=== PATIENT | male | born 1940 | race Caucasian/White ===

== ENCOUNTER 2018-08-03 22:05 | Emergency (ER) | payer MEDICARE, OTHER ==
--- NOTE | 2018-08-03 22:56 | EDM.PDOC ---
ED HPI GENERAL MEDICAL PROBLEM - General Chief Complaint: General Stated Complaint: OFF MEDS Time Seen by Provider: 08/03/18 22:14 Source of Information: Reports: Patient, Family (Son), RN Notes Reviewed History Limitations: Reports: No Limitations - History of Present Illness INITIAL COMMENTS - FREE TEXT/NARRATIVE: The patient states that his physician, Dr. León, from [place], moved more than a year ago, and when the patient's medications ran out, he did not follow- up with another provider. He has therefore been out of his medications for about a year. The patient has type 2 diabetes, and states that he checked his blood glucose around 2 weeks ago, finding it to be around 300, however, he says that his glucometer strips are old and, he presumes, therefore give an incorrectly high result, or so he has been told. The patient is now brought to the ED by his son who came to visit him and discovered that he has not been to the doctor for about a year. The patient's son apparently called a friend of theirs who is a batch and furnace manager, and asked if the patient should go to a walk-in clinic, the ER, or follow-up with a PCP, and the batch and furnace manager friend said that they should go to the ER. The patient states that he has not had any recent illnesses. He denies, specifically, any recent fever, chills, cough, chest pain, palpitations, dyspnea , nausea, vomiting, constipation, diarrhea, dysuria, urinary urgency, or urinary frequency. No recent rashes, recent weight gain or weight loss. - Related Data Allergies Allergy/AdvReac Type Severity Reaction Status Date / Time metformin Allergy Abdominal Verified 08/03/18 22:14 Pain Home Meds: Home Meds Aspirin [Halfprin] 81 mg PO DAILY 08/03/18 [History] Lisinopril 1 tab PO QPM #7 tablet 08/04/18 [Rx] Past Medical History Cardiovascular History: Reports: Hypertension (untreated) Genitourinary History: Reports: BPH (untreated) Musculoskeletal History: Reports: Arthritis Psychiatric History: Reports: Anxiety (untreated) Endocrine/Metabolic History: Reports: Diabetes, Type II (untreated) Oncologic (Cancer) History: Reports: Squamous Cell Carcinoma (excised) - Past Surgical History HEENT Surgical History: Reports: Cataract Surgery (bilateral) GI Surgical History: Reports: Hernia, Inguinal (right, 05/09/2012) Social & Family History - Family History Family Medical History: Noncontributory - Tobacco Use Smoking Status *Q: Never Smoker - Alcohol Use Alcohol Use History: No - Recreational Drug Use Recreational Drug Use: No - Living Situation & Occupation Living situation: Reports: , with Spouse Occupation: Retired ED ROS GENERAL - Review of Systems Review Of Systems: ROS reveals no pertinent complaints other than HPI. ED EXAM, GENERAL - Physical Exam Exam: See Below Exam Limited By: No Limitations General Appearance: Alert, WD/WN, No Apparent Distress Eye Exam: Bilateral Eye: EOMI, Normal Inspection Ears: Normal External Exam, Hearing Grossly Normal Nose: Normal Inspection Throat/Mouth: Normal Inspection, Normal Lips, Normal Voice, No Airway Compromise Head: Atraumatic, Normocephalic Neck: Normal Inspection, Full Range of Motion Respiratory/Chest: No Respiratory Distress, Lungs Clear, Normal Breath Sounds, No Accessory Muscle Use Cardiovascular: Normal Peripheral Pulses, Regular Rate, Rhythm, No Edema, No Gallop, No JVD, No Murmur, No Rub Peripheral Pulses: 4+: Radial (L), Radial (R) GI/Abdominal: Normal Bowel Sounds, Soft, Non-Tender, No Organomegaly, No Distention, No Abnormal Bruit, No Mass (Male) Exam: Deferred Rectal (Males) Exam: Deferred Back Exam: Normal Inspection, Full Range of Motion, NT Extremities: Normal Inspection, Normal Range of Motion, No Pedal Edema, Normal Capillary Refill Neurological: Alert, Oriented, Normal Cognition, No Motor/Sensory Deficits Psychiatric: Normal Affect Skin Exam: Warm, Dry, Intact, Normal Color, No Rash Course - Vital Signs Last Recorded V/S: Last Vital Signs Temp 36.6 C 08/03/18 22:11 Pulse 69 08/03/18 22:11 Resp 18 08/03/18 22:11 BP 164/86 H 08/04/18 00:19 Pulse Ox 98 08/03/18 22:11 - Orders/Labs/Meds Labs: Laboratory Tests 08/03/18 08/03/18 Range/Units 22:50 22:50 WBC 6.24 (4.23-9.07) K/mm3 RBC 4.29 L (4.63-6.08) M/mm3 Hgb 13.4 L (13.7-17.5) gm/L Hct 38.6 L (40.1-51.0) % MCV 90.0 (79.0-92.2) fl MCH 31.2 (25.7-32.2) pg MCHC 34.7 (32.2-35.5) g/dl RDW Std Deviation 47.2 H (35.1-43.9) fL Plt Count 213 (163-337) K/mm3 MPV 10.4 (9.4-12.3) fl Neutrophils % (Manual) 39 L (40-60) % Band Neutrophils % 1 (0-10) % Lymphocytes % (Manual) 44 H (20-40) % Atypical Lymphs % 8 % Monocytes % (Manual) 7 (2-10) % Eosinophils % (Manual) 1 (0.8-7.0) % Basophils % (Manual) 0 L (0.2-1.2) Platelet Estimate Adequate Plt Morphology Comment Normal RBC Morph Comment Normal Sodium 141 (136-145) mEq/L Potassium 3.6 (3.5-5.1) mEq/L Chloride 106 (98-107) mEq/L Carbon Dioxide 22 (21-32) mEq/L Anion Gap 16.6 H (5-15) BUN 30 H (7-18) mg/dL Creatinine 1.2 (0.7-1.3) mg/dL Est Cr Clr Drug Dosing 56.41 mL/min Estimated GFR (MDRD) 58 (>60) mL/min BUN/Creatinine Ratio 25.0 H (14-18) Glucose 126 H (83-115) mg/dL Calcium 9.0 (8.5-10.1) mg/dL Total Bilirubin 0.5 (0.2-1.0) mg/dL AST 17 (15-37) U/L ALT 23 (16-63) U/L Alkaline Phosphatase 65 (46-116) U/L Total Protein 6.2 L (6.4-8.2) g/dl Albumin 3.5 (3.4-5.0) g/dl Globulin 2.7 gm/dL Albumin/Globulin Ratio 1.3 (1-2) TSH 3rd Generation 2.719 (0.358-3.74) uIU/mL Meds: Medications Discontinued Medications Generic Name Dose Route Start Last Admin Trade Name Freq PRN Reason Stop Dose Admin Lisinopril 5 mg 08/04/18 00:10 08/04/18 00:19 Prinivil PO 08/04/18 00:11 5 mg ONETIME ONE Administration - Re-Assessments/Exams Free Text/Narrative Re-Assessment/Exam: 08/03/18 22:39 The patient does not have any acute medical issues, and the only reason that he is in the ED is because his son brought him on the advice of a batch and furnace manager friend. The patient needs a PCP. For tonight purposes, I have ordered a CBC, CMP , and a TSH level. I do not see an indication for other emergency tests at this time, as the patient is otherwise asymptomatic. 08/04/18 00:02 Test results discussed with the patient and his son. The patient's CBC, CMP, and TSH are unremarkable. The patient's blood glucose is only 126. His blood pressure, without treatment, has reduced to 164/86. For tonight's purposes, the patient will receive 5 mg of lisinopril. He had previously taken 10 mg per day, but since he has not been on it for about a year , I think it would be ordonez to give a lower dose as a first dose. I will prescribe a 7-day course. Since his blood glucose is only 126, I am not going to prescribe any diabetic medications tonight. I will discharge the patient home with a referral to the [facility], with the recommendation that he call them in the morning to make an appointment to be seen, and to establish care there. Departure - Departure Time of Disposition: 00:04 Disposition: Home, Self-Care 01 Condition: Good Clinical Impression: Hypertension, Diabetes mellitus - Discharge Information *PRESCRIPTION DRUG MONITORING PROGRAM REVIEWED*: Not Applicable *COPY OF PRESCRIPTION DRUG MONITORING REPORT IN PATIENT YENY: Not Applicable Prescriptions: Lisinopril 1 tab PO QPM #7 tablet Instructions: Hypertension Referrals: Mey Mcneal NP [Nurse Practitioner] - Ann Marie Fritz PA-C [Physician [facility] [place]] - Forms: ED Department Discharge Additional Instructions: You were seen in the emergency room due to concern by her son, that you have been out of your medications for about a year. Workup in the ER included a CBC, CMP, and TSH level. All were unremarkable. Your blood sugar was 126. You have been restarted on the blood pressure medicine lisinopril. A short-term prescription for lisinopril has been sent to the [facility], located at [address] [place] [address]. Take one tablet of lisinopril each evening, starting Tuesday evening, 08/04/2018, as prescribed. It is important that you establish care with a primary care provider. We recommend that you follow-up with either Mey Mcneal or Ann Marie Fritz in the [facility]. We recommend that you call the clinic in the morning, to make an appointment to be seen. If any other problems, please do not hesitate to return to the ER.
[2018-08-04] MEDS ORDERED: Lisinopril 5 MG Tab PO ONE (00:10)
== END 2018-08-04 00:22 | disposition home or self-care (01) ==
LOC: JD.ED 22:05
DX: E11.9 Type 2 diabetes mellitus without complications (principal); I10 Essential (primary) hypertension; Z79.82 Long term (current) use of aspirin; Z88.8 Allergy status to other drugs, medicaments and biological substances
CPT/HCPCS: 36415; 80053; 84443; 85007; 85027; 99282; A9270; 99283